=== PATIENT | female | born 1940 | race African-American/Black ===

== ENCOUNTER 2016-11-27 14:00 | Outpatient (CLI) | payer MEDICARE, MEDICAID ==
--- NOTE | 2016-11-27 15:53 | RAD ---
CHEST PA AND LATERAL: HISTORY: A 76-year-old female with hemoptysis. FINDINGS: There is an approximately 3.1 x 4 cm diameter mass in the left lingula. Heart size is normal. Athe rosclerosis of the aorta. No pleural effusion. No overt hilar adenopathy or hilar mass. IMPRESSION: Large mass in the lingula of the left upper lobe worrisome for neoplasm. Followup chest CT scan wit h IV contrast would be of benefit for further evaluation. Findings were discussed with and acknowledged by Cecilia Henry at 2:20 p.m. CODE CR POS: [facility]
== END 2016-11-27 14:01 | disposition home or self-care (01) ==
LOC: MADRAD 14:00
PROVIDERS: ATTEND Physician Assistant
DX: Z12.31 Encounter for screening mammogram for malignant neoplasm of breast (principal); R04.2 Hemoptysis; R91.8 Other nonspecific abnormal finding of lung field
CPT/HCPCS: 71020

== ENCOUNTER 2016-12-01 07:39 | Outpatient (CLI) | payer MEDICARE, MEDICAID ==
[2016-12-01 08:06] LABS: Calc. Creatinine Clearance 0 mL/min (70-130); Estimated GFR-MDRD Greater than 90
--- NOTE | 2016-12-01 11:26 | CT ---
CT THORAX WITH IV CONTRAST: DATE: 12/01/16. HISTORY: Mass seen on recent chest x-ray. CT examination was recommended. COMPARISON: Chest x-ray on 11/27/16. FINDINGS: As noted on the chest x-ray, there is a rounded mass seen within the lingula measuring 2.8 cm cranio caudal x 3.5 cm transverse x 3.4 cm AP with adjacent stranding present. There is an additional smal l satellite pulmonary nodule seen further inferiorly in the region of the lingula which measures georges roximately 1.2 cm. There is a tiny pleural-based less than 4 mm pulmonary nodule seen in the anterior aspect of the rig ht upper lobe (image 22, series 3). No additional pulmonary nodule is seen within the lungs bilater ally. No pleural effusion is identified. There is evidence of mild emphysematous changes within th e upper lobes. Nonspecific, nonenlarged mediastinal lymph nodes are seen. No enlarged lymph nodes are identified w ithin the chest by CT size criteria. Dense vascular calcifications are seen in the coronary arteries as well as involving the thoracic ao rta. There is thickening of each adrenal gland without a discrete nodule appreciated. The remainder of t he upper abdomen has a normal CT appearance. Remote anterior right-sided rib fractures are present. No lytic or sclerotic lesions are seen. The re are degenerative changes in the spine. IMPRESSION: 1. Mass in the lingula with an adjacent noncalcified pulmonary nodule further inferiorly within the lingula. Findings are worrisome for neoplastic process. 2. Less than 4 mm pleural-based nodular density in the right upper lobe. 3. No enlarged lymph nodes are seen by CT size criteria. 4. Prominent vascular calcifications in the coronary arteries and thoracic aorta. POS: [facility]
[2016-12-01] MEDS ORDERED: Iopamidol 370 76% 100 ML VIAL ONE (11:51)
== END 2016-12-01 07:40 | disposition home or self-care (01) ==
LOC: MADCT 07:39
PROVIDERS: ATTEND Physician Assistant
DX: R91.8 Other nonspecific abnormal finding of lung field (principal)
CPT/HCPCS: 36415; 71260; 82565

== ENCOUNTER 2021-05-31 20:31 | Emergency (ER) | payer MEDICARE, MEDICAID ==
[~2021-05-31 20:31] MED LIST: Iopamidol 370 76% 125 ML VIAL FS ONE; Sodium Chloride 0.9% 100 ML BAG ONE
[2021-05-31 21:31] LABS: #Lymphocytes 0.7 thou/uL (1.20-3.40); #Monocytes 0.5 thou/uL (0.11-0.59); #Neutrophils 16.3 thou/uL (1.40-6.50); %Basophils 0.1 % (0.0-1.0); %Eosinophils 0.2 % (0.0-10.0); %Monocytes 2.6 % (0.0-10.0); %Neutrophils 93.2 % (42.0-75.0); Mean Corpuscular HGB CONC 31.5 g/dL (32.0-36.0); Mean Corpuscular Hemoglobin 31.1 pg (27.0-31.0); Mean Corpuscular Volume 98.9 fL (78.0-98.0); Mean Platelet Volume 6.6 fL (7.4-10.4); Platelet Count 245 thou/uL (130-400); RBC Distribution Width 18.2 % (11.5-14.5); Red Blood Cell (RBC) Count 2.25 mill/uL (4.20-5.40); White Blood Cell (WBC) Count 17.5 thou/uL (4.8-10.8)
[2021-05-31] MEDS ORDERED: Cefepime 2 GM VIAL ONE (21:39)
[2021-05-31] MEDS ORDERED: Vancomycin HCl 500 MG VIAL ONE (21:39)
[2021-05-31] MEDS ORDERED: Vancomycin HCl 750 MG VIAL ONE (21:41)
[2021-05-31 22:21] LABS: ALT (SGPT) 9 U/L (8-55); AST (SGOT) 12 U/L (5-34); Albumin 2.5 g/dL (3.4-4.8); Alkaline Phosphatase 63 U/L (40-110); Anion Gap 16 mmol/L (10-20); BUN (Urea Nitrogen) 22 mg/dL (9.8-20.1); Bilirubin, Total 0.4 mg/dL (0.2-1.2); CK (CPK) 45 U/L (29-168); Calc. Creatinine Clearance 0 mL/min (70-130); Carbon Dioxide 20 mmol/L (23-31); Glucose 103 mg/dL (83-110); Lipase 21 U/L (8-78); Protein, Total 5.5 g/dL (5.8-8.1)
[2021-05-31 22:26] LABS: Chloride 109 mmol/L (98-107); Potassium 3.5 mmol/L (3.5-5.1); Sodium 141 mmol/L (136-145)
[2021-05-31 22:40] LABS: Bilirubin Negative (Negative); Blood, Urine Trace (Negative); Clarity Clear (Clear); Glucose, Urine (Dipstick) Negative (Negative); Ketone, Urine Trace mg/dL (Negative); Leukocyte Trace (Negative); Nitrite Negative (Negative); Protein, Urine (Dipstick) Trace mg/dL (Neg-Trace); Urobilinogen 0.2 mg/dL (Less than 2); pH, Urine 5.5 (5.0-9.0)
[2021-05-31 23:03] LABS: Bacteria/HPF None Seen HPF (None Seen); RBC/HPF 0-3 HPF (0-3); Transitional Epithelial 0-3 HPF (None Seen); Trichomonas/HPF 1+ HPF (None Seen)
[2021-05-31] MEDS ORDERED: Heparin 25,000 units/D5W 500 ML ONE (23:42)
[2021-05-31] MEDS ORDERED: Pantoprazole 40 MG VIAL ONE (23:42)
[2021-06-01] MEDS ORDERED: Heparin 25,000 units/D5W 0 ML ONE
== END 2021-06-01 00:25 | disposition short-term general hospital (02) ==
LOC: MADERS 20:31
DX: I26.99 Other pulmonary embolism without acute cor pulmonale (principal); N13.2 Hydronephrosis with renal and ureteral calculous obstruction; C16.9 Malignant neoplasm of stomach, unspecified; R00.0 Tachycardia, unspecified; I95.9 Hypotension, unspecified
CPT/HCPCS: 36430; 71045; 71275; 74174; 82550; 83605; 83690; 84484; 86850; 86900; 86901; 86920; 93005; P9016; 51701; 80053; 81003; 81015; 82274; 84443; 85025; 96365; 96366; 96367; 96368; 96375; C9113; J0692; J1644; J3370; J3490; J7050; Q9967